=== PATIENT | male | born 1995 | race Caucasian/White ===

== ENCOUNTER → 2016-05-08 | Outpatient (REF) | payer OTHER | LOC: M SFHCLERA 16:26 | PROVIDERS: ATTEND Physician Assistant | DX: L02.91 Cutaneous abscess, unspecified (principal) ==

== ENCOUNTER 2017-09-11 01:27 | Observation (INO) | payer BC, OTHER ==
[2017-09-11 02:05] LABS: VENOUS BASE EXCESS -10.2 (-2.0-2.0); VENOUS HCO3 17.2 MEQ/L (23.0-27.0); VENOUS O2 SATURATION 64.6 % (60.0-80.0); VENOUS PARTIAL PRESSURE CO2 42.8 mmHg (38.0-50.0); VENOUS PARTIAL PRESSURE O2 36.1 mmHg (30.0-50.0); VENOUS PH 7.221 UNITS (7.330-7.430); VENOUS STANDARD HCO3 15.9 MEQ/L; VENOUS TOTAL CO2 18.5 MEQ/L (24.0-28.0)
[2017-09-11] MEDS ORDERED: HumuLIN R (REGULAR) INSULIN (NovoLIN R) **100U/ML** PER UNIT As Ordered (02:06)
[2017-09-11] MEDS ORDERED: KCL 20MEQ IN D5/.45NACL 1000ML As Ordered (02:09)
[2017-09-11 02:48] LABS: OSMOLALITY SERUM 311 MOSM/KG (275-295)
[2017-09-11 02:53] LABS: ANION GAP 15 MEQ/L (8-16); BLOOD UREA NITROGEN 23 MG/DL (7-18); CALCIUM LEVEL 8.6 MG/DL (8.5-10.1); CARBON DIOXIDE LEVEL 16 MEQ/L (21-32); CHLORIDE LEVEL 109 MEQ/L (98-107); CREATININE FOR GFR 1.23 MG/DL (0.70-1.30); GLOMERULAR FILTRATION RATE > 60.0 (>60); GLUCOSE, FASTING 249 MG/DL (70-100); POTASSIUM SERUM 4.6 MEQ/L (3.5-5.1); SODIUM LEVEL 140 MEQ/L (136-145)
[2017-09-11 03:31] LABS: ABG O2 SATURATION 98.2 % (95.0-99.0); ABG PARTIAL PRESSURE CO2 27.7 mmHg (35.0-45.0); ABG STANDARD HCO3 15.2 MEQ/L (22.0-26.0); ABG TOTAL CO2 13.8 MEQ/L (22.0-29.0); ABG pH (ARTERIAL) 7.289 UNITS (7.350-7.450)
[2017-09-11] MEDS ORDERED: DEXTROSE 50% 50 ML SYRINGE IV (04:30)
[2017-09-11] MEDS ORDERED: GLUCAGON FOR INJ 1 MG VIAL (J1610) SC (04:30)
[2017-09-11] MEDS ORDERED: ACETAMINOPHEN TAB 650MG DOSE (2X325MG) PO (04:30)
[2017-09-11] MEDS ORDERED: GLUCOSE 4 GM CHEW TABLET PO (04:30)
[2017-09-11] MEDS: LR 1,000 ML IV ×3 (04:30→22:52)
[2017-09-11 05:20] LABS: ACETONE/KETONE > 46.00 MG/DL (<2.81)
[2017-09-11] MEDS: LEVEMIR (INSULIN DETEMIR) 1 UNITS/0.01ML SC ×2 (05:30→09:17)
[2017-09-11 06:44] LABS: PHOSPHORUS LEVEL 2.4 MG/DL (2.5-4.9)
[2017-09-11 06:44] LABS: MAGNESIUM LEVEL 2.1 MG/DL (1.8-2.4)
[2017-09-11 06:45] LABS: AMPHETAMINES LEVEL URINE NEGATIVE (NEGATIVE); BARBITURATES URINE NEGATIVE (NEGATIVE); BENZODIAZEPINES URINE NEGATIVE (NEGATIVE); CANNABINOIDS URINE NEGATIVE (NEGATIVE); COCAINE METABOLITE URINE NEGATIVE (NEGATIVE); METHADONE URINE NEGATIVE (NEGATIVE); OPIATES URINE POSITIVE (NEGATIVE); PHENCYCLIDINE URINE NEGATIVE (NEGATIVE)
[2017-09-11 06:47] LABS: LACTIC ACID SEPSIS PROTOCOL 0.6 MMOL/L (0.4-2.0)
[2017-09-11] MEDS: HumaLOG INSULIN (NovoLOG) PER UNIT SC ×4 (07:38→21:46)
[2017-09-11 07:40] LABS: BEDSIDE GLUCOSE 277 MG/DL (70-105)
[2017-09-11 12:13] LABS: HEMATOCRIT 39.7 % (42.0-52.0); HEMOGLOBIN 13.5 g/dl (13.5-17.5); MEAN CORPUSCULAR HEMOGLOBIN 30.3 pg (27.0-33.0); PLATELET COUNT, AUTOMATED 342 10^3/uL (150-450); RED BLOOD COUNT 4.46 10^6/uL (4.30-6.10); RED CELL DISTRIBUTION WIDTH 13.2 % (11.5-14.5); WHITE BLOOD COUNT 13.7 10^3/uL (4.0-10.0)
[2017-09-11 12:19] LABS: ABG BASE EXCESS -6.4 (-2.0-2.0); ABG HCO3 17.5 MEQ/L (22.0-26.0); ABG O2 SATURATION 96.7 % (95.0-99.0); ABG PARTIAL PRESSURE CO2 30.6 mmHg (35.0-45.0); ABG PARTIAL PRESSURE O2 83.9 mmHg (75.0-100.0); ABG STANDARD HCO3 19.2 MEQ/L (22.0-26.0); ABG TOTAL CO2 18.5 MEQ/L (22.0-29.0); ABG pH (ARTERIAL) 7.376 UNITS (7.350-7.450)
[2017-09-11 12:59] LABS: HEMATOCRIT 39.2 % (42.0-52.0); HEMOGLOBIN 13.7 g/dl (13.5-17.5); MEAN CORPUSCULAR HEMOGLOBIN 30.1 pg (27.0-33.0); MEAN CORPUSCULAR HGB CONC 34.9 g/dl (32.0-36.5); MEAN CORPUSCULAR VOLUME 86.2 fl (80.0-96.0); PLATELET COUNT, AUTOMATED 301 10^3/uL (150-450); RED BLOOD COUNT 4.55 10^6/uL (4.30-6.10); RED CELL DISTRIBUTION WIDTH 12.8 % (11.5-14.5); WHITE BLOOD COUNT 12.1 10^3/uL (4.0-10.0)
[2017-09-11 13:17] LABS: ANION GAP 11 MEQ/L (8-16); BLOOD UREA NITROGEN 18 MG/DL (7-18); CALCIUM LEVEL 8.8 MG/DL (8.5-10.1); CARBON DIOXIDE LEVEL 20 MEQ/L (21-32); CHLORIDE LEVEL 109 MEQ/L (98-107); CREATININE FOR GFR 1.09 MG/DL (0.70-1.30); GLOMERULAR FILTRATION RATE > 60.0 (>60); GLUCOSE, FASTING 184 MG/DL (70-100); LIPASE 301 U/L (73-393); POTASSIUM SERUM 4.3 MEQ/L (3.5-5.1); SODIUM LEVEL 140 MEQ/L (136-145); TROPONIN I < 0.02 NG/ML (< 0.10)
[2017-09-11 13:18] LABS: ACETONE/KETONE 33.31 MG/DL (<2.81)
[2017-09-11 15:17] LABS: BEDSIDE GLUCOSE 269 MG/DL (70-105)
[2017-09-11 15:17] LABS: BEDSIDE GLUCOSE 223 MG/DL (70-105)
[2017-09-11 15:17] LABS: BEDSIDE GLUCOSE 250 MG/DL (70-105)
[2017-09-11 17:54] LABS: BEDSIDE GLUCOSE 210 MG/DL (70-105)
[2017-09-11] MEDS ORDERED: CALCIUM CARBONATE 500 MG CHEW U/D PO (18:45)
[2017-09-11 21:02] LABS: BEDSIDE GLUCOSE 213 MG/DL (70-105)
[2017-09-12] MEDS: LR 1,000 ML IV (05:49)
[2017-09-12 06:04] LABS: HEMATOCRIT 33.4 % (42.0-52.0); HEMOGLOBIN 11.8 g/dl (13.5-17.5); MEAN CORPUSCULAR HEMOGLOBIN 30.4 pg (27.0-33.0); MEAN CORPUSCULAR HGB CONC 35.3 g/dl (32.0-36.5); MEAN CORPUSCULAR VOLUME 86.1 fl (80.0-96.0); PLATELET COUNT, AUTOMATED 241 10^3/uL (150-450); RED BLOOD COUNT 3.88 10^6/uL (4.30-6.10); RED CELL DISTRIBUTION WIDTH 12.6 % (11.5-14.5); WHITE BLOOD COUNT 7.5 10^3/uL (4.0-10.0)
[2017-09-12 06:23] LABS: ANION GAP 9 MEQ/L (8-16); BLOOD UREA NITROGEN 11 MG/DL (7-18); CARBON DIOXIDE LEVEL 23 MEQ/L (21-32); CHLORIDE LEVEL 107 MEQ/L (98-107); CREATININE FOR GFR 0.88 MG/DL (0.70-1.30); GLOMERULAR FILTRATION RATE > 60.0 (>60); GLUCOSE, FASTING 279 MG/DL (70-100); POTASSIUM SERUM 3.8 MEQ/L (3.5-5.1); SODIUM LEVEL 139 MEQ/L (136-145)
[2017-09-12 07:02] LABS: ACETONE/KETONE 40.71 MG/DL (<2.81)
[2017-09-12] MEDS: PANTOPRAZOLE 40MG TAB (PROTONIX) PO (09:20)
[2017-09-12] MEDS: LEVEMIR (INSULIN DETEMIR) 1 UNITS/0.01ML SC (09:21)
[2017-09-12] MEDS: HumaLOG INSULIN (NovoLOG) PER UNIT SC ×2 (09:23→12:31)
[2017-09-12 11:53] LABS: BEDSIDE GLUCOSE 303 MG/DL (70-105)
== END 2017-09-12 14:41 | disposition home or self-care (01) ==
LOC: M ED 01:27 → M ED INP 04:27 → M PCU 08:37 → M MSPAV 17:55
PROVIDERS: Internal Medicine
DX: E10.10 Type 1 diabetes mellitus with ketoacidosis without coma (principal); T85.614A Breakdown (mechanical) of insulin pump, initial encounter; T38.3X6A Underdosing of insulin and oral hypoglycemic [antidiabetic] drugs, initial encounter; Y74.2 Prosthetic and other implants, materials and accessory general hospital and personal-use devices associated with adverse incidents; E10.65 Type 1 diabetes mellitus with hyperglycemia; R00.0 Tachycardia, unspecified; R11.2 Nausea with vomiting, unspecified; R10.9 Unspecified abdominal pain; Z79.899 Other long term (current) drug therapy
CPT/HCPCS: 36600

== ENCOUNTER 2017-12-05 08:25 | Inpatient (IN) | payer BC, OTHER ==
[2017-12-05 08:49] LABS: BEDSIDE GLUCOSE 221 MG/DL (70-105)
[2017-12-05 09:16] LABS: VENOUS BASE EXCESS -7.3 (-2.0-2.0); VENOUS HCO3 19.3 MEQ/L (23.0-27.0); VENOUS O2 SATURATION 70.9 % (60.0-80.0); VENOUS PARTIAL PRESSURE CO2 42.6 mmHg (38.0-50.0); VENOUS PARTIAL PRESSURE O2 39.9 mmHg (30.0-50.0); VENOUS PH 7.273 UNITS (7.330-7.430); VENOUS STANDARD HCO3 18.1 MEQ/L; VENOUS TOTAL CO2 20.6 MEQ/L (24.0-28.0)
[2017-12-05 09:49] LABS: ANION GAP 11 MEQ/L (8-16); BLOOD UREA NITROGEN 29 MG/DL (7-18); CALCIUM LEVEL 8.4 MG/DL (8.5-10.1); CARBON DIOXIDE LEVEL 23 MEQ/L (21-32); CHLORIDE LEVEL 109 MEQ/L (98-107); CREATININE FOR GFR 1.28 MG/DL (0.70-1.30); GLOMERULAR FILTRATION RATE > 60.0 (>60); GLUCOSE, FASTING 181 MG/DL (70-100); POTASSIUM SERUM 4.3 MEQ/L (3.5-5.1); SODIUM LEVEL 143 MEQ/L (136-145)
[2017-12-05 10:15] LABS: BEDSIDE GLUCOSE 168 MG/DL (70-105)
[2017-12-05 10:23] LABS: ABG HCO3 15.5 MEQ/L (22.0-26.0); ABG PARTIAL PRESSURE CO2 29.6 mmHg (35.0-45.0); ABG PARTIAL PRESSURE O2 103.8 mmHg (75.0-100.0); ABG STANDARD HCO3 17.3 MEQ/L (22.0-26.0); ABG TOTAL CO2 16.4 MEQ/L (22.0-29.0); ABG pH (ARTERIAL) 7.336 UNITS (7.350-7.450)
[2017-12-05 11:53] LABS: BEDSIDE GLUCOSE 208 MG/DL (70-105)
[2017-12-05 12:56] LABS: ANION GAP 17 MEQ/L (8-16); BLOOD UREA NITROGEN 26 MG/DL (7-18); CALCIUM LEVEL 8.5 MG/DL (8.5-10.1); CARBON DIOXIDE LEVEL 18 MEQ/L (21-32); CHLORIDE LEVEL 107 MEQ/L (98-107); CREATININE FOR GFR 1.19 MG/DL (0.70-1.30); GLOMERULAR FILTRATION RATE > 60.0 (>60); GLUCOSE, FASTING 291 MG/DL (70-100); POTASSIUM SERUM 4.6 MEQ/L (3.5-5.1); SODIUM LEVEL 142 MEQ/L (136-145)
[2017-12-05] MEDS ORDERED: INSULIN HUMAN REGULAR 100 UNITS in NS 99 ML IV ×2 (13:30→14:00)
[2017-12-05] MEDS: NS 1,000 ML IV ×3 (13:30→23:40)
[2017-12-05 13:50] LABS: BEDSIDE GLUCOSE 408 MG/DL (70-105)
[2017-12-05] MEDS ORDERED: MAALOX 30 ML SUSP *UDC PO (14:30)
[2017-12-05] MEDS: INSULIN HUMAN REGULAR 100 UNITS in NS 99 ML IV (15:00)
[2017-12-05 15:09] LABS: BEDSIDE GLUCOSE 505 MG/DL (70-105)
[2017-12-05 15:17] LABS: ESTIMATED AVERAGE GLUCOSE 275 MG/DL (60-110); HEMOGLOBIN A1c 11.2 %
[2017-12-05 15:21] LABS: ANION GAP 18 MEQ/L (8-16); BLOOD UREA NITROGEN 27 MG/DL (7-18); CALCIUM LEVEL 8.8 MG/DL (8.5-10.1); CARBON DIOXIDE LEVEL 16 MEQ/L (21-32); CHLORIDE LEVEL 103 MEQ/L (98-107); GLOMERULAR FILTRATION RATE > 60.0 (>60); POTASSIUM SERUM 4.5 MEQ/L (3.5-5.1); SODIUM LEVEL 137 MEQ/L (136-145)
[2017-12-05 15:23] LABS: PHOSPHORUS LEVEL 3.2 MG/DL (2.5-4.9)
[2017-12-05 15:24] LABS: GLUCOSE, FASTING 490 MG/DL (70-100)
[2017-12-05 15:26] LABS: ACETONE/KETONE > 46.00 MG/DL (<2.81)
[2017-12-05] MEDS: ONDANSETRON 4MG/2ML VIAL (J2405) IV (16:00)
[2017-12-05] MEDS: PANTOPRAZOLE 40MG INJ (PROTONIX) (C9113) IV (16:00)
[2017-12-05] MEDS: KCL 20MEQ in NS 1000ML 1,000 ML IV (16:01)
[2017-12-05 16:11] LABS: BEDSIDE GLUCOSE 447 MG/DL (70-105)
[2017-12-05] MEDS: INSULIN IV RATE CHANGE DOCUMENTATION ML/HR XX ×3 (17:00→19:12)
[2017-12-05 17:24] LABS: BEDSIDE GLUCOSE 309 MG/DL (70-105)
[2017-12-05 18:01] LABS: BEDSIDE GLUCOSE 283 MG/DL (70-105)
[2017-12-05 19:07] LABS: BEDSIDE GLUCOSE 160 MG/DL (70-105)
[2017-12-05] MEDS: KCL 20MEQ IN D5/0.45NS 1000ML 1,000 ML IV (19:23)
[2017-12-05 19:30] LABS: ANION GAP 12 MEQ/L (8-16); BLOOD UREA NITROGEN 24 MG/DL (7-18); CALCIUM LEVEL 8.4 MG/DL (8.5-10.1); CARBON DIOXIDE LEVEL 20 MEQ/L (21-32); CHLORIDE LEVEL 108 MEQ/L (98-107); GLOMERULAR FILTRATION RATE > 60.0 (>60); GLUCOSE, FASTING 246 MG/DL (70-100); POTASSIUM SERUM 4.1 MEQ/L (3.5-5.1); SODIUM LEVEL 140 MEQ/L (136-145)
[2017-12-05 19:31] LABS: ACETONE/KETONE 32.48 MG/DL (<2.81)
[2017-12-05 19:31] LABS: MAGNESIUM LEVEL 1.9 MG/DL (1.8-2.4)
[2017-12-05] MEDS ORDERED: GLUCAGON FOR INJ 1 MG VIAL (J1610) SC (19:45)
[2017-12-05] MEDS ORDERED: DEXTROSE 50% 50 ML SYRINGE IV (19:45)
[2017-12-05] MEDS ORDERED: GLUCOSE 4 GM CHEW TABLET PO (19:45)
[2017-12-05 20:01] LABS: BEDSIDE GLUCOSE 190 MG/DL (70-105)
[2017-12-05] MEDS: LEVEMIR (INSULIN DETEMIR) 1 UNITS/0.01ML SC (20:01)
[2017-12-05] MEDS: HumaLOG INSULIN (NovoLOG) PER UNIT SC (20:01)
[2017-12-05 21:00] LABS: BEDSIDE GLUCOSE 187 MG/DL (70-105)
[2017-12-05 23:16] LABS: ACETONE/KETONE 39.19 MG/DL (<2.81); ANION GAP 11 MEQ/L (8-16); BLOOD UREA NITROGEN 20 MG/DL (7-18); CARBON DIOXIDE LEVEL 20 MEQ/L (21-32); CHLORIDE LEVEL 108 MEQ/L (98-107); CREATININE FOR GFR 1.15 MG/DL (0.70-1.30); GLOMERULAR FILTRATION RATE > 60.0 (>60); GLUCOSE, FASTING 221 MG/DL (70-100); MAGNESIUM LEVEL 1.9 MG/DL (1.8-2.4); POTASSIUM SERUM 4.2 MEQ/L (3.5-5.1); SODIUM LEVEL 139 MEQ/L (136-145)
[2017-12-06 02:40] LABS: ACETONE/KETONE 23.02 MG/DL (<2.81); ANION GAP 11 MEQ/L (8-16); BLOOD UREA NITROGEN 17 MG/DL (7-18); CARBON DIOXIDE LEVEL 21 MEQ/L (21-32); CHLORIDE LEVEL 108 MEQ/L (98-107); CREATININE FOR GFR 1.19 MG/DL (0.70-1.30); GLOMERULAR FILTRATION RATE > 60.0 (>60); GLUCOSE, FASTING 182 MG/DL (70-100); POTASSIUM SERUM 3.9 MEQ/L (3.5-5.1); SODIUM LEVEL 140 MEQ/L (136-145)
[2017-12-06 02:40] LABS: MAGNESIUM LEVEL 1.9 MG/DL (1.8-2.4)
[2017-12-06 06:48] LABS: HEMOGLOBIN 11.5 g/dl (13.5-17.5); MEAN CORPUSCULAR HEMOGLOBIN 31.3 pg (27.0-33.0); MEAN CORPUSCULAR HGB CONC 34.8 g/dl (32.0-36.5); MEAN CORPUSCULAR VOLUME 89.7 fl (80.0-96.0); PLATELET COUNT, AUTOMATED 277 10^3/uL (150-450); RED BLOOD COUNT 3.68 10^6/uL (4.30-6.10); RED CELL DISTRIBUTION WIDTH 11.9 % (11.5-14.5); WHITE BLOOD COUNT 8.8 10^3/uL (4.0-10.0)
[2017-12-06 07:08] LABS: ALBUMIN/GLOBULIN RATIO 0.94 (1.00-1.93); ALKALINE PHOSPHATASE 77 U/L (45-117); ALT/SGPT 18 U/L (12-78); ANION GAP 9 MEQ/L (8-16); AST/SGOT 14 U/L (7-37); BILIRUBIN,TOTAL 0.6 MG/DL (0.2-1.0); BLOOD UREA NITROGEN 15 MG/DL (7-18); CARBON DIOXIDE LEVEL 24 MEQ/L (21-32); CHLORIDE LEVEL 108 MEQ/L (98-107); CREATININE FOR GFR 1.02 MG/DL (0.70-1.30); GLOMERULAR FILTRATION RATE > 60.0 (>60); GLUCOSE, FASTING 120 MG/DL (70-100); MAGNESIUM LEVEL 1.8 MG/DL (1.8-2.4); PHOSPHORUS LEVEL 1.6 MG/DL (2.5-4.9); POTASSIUM SERUM 3.8 MEQ/L (3.5-5.1); SODIUM LEVEL 141 MEQ/L (136-145); TOTAL PROTEIN 6.2 GM/DL (6.4-8.2)
[2017-12-06] MEDS: PANTOPRAZOLE 40MG INJ (PROTONIX) (C9113) IV (08:30)
[2017-12-06] MEDS: NEUTRA-PHOS 1.25 GM PACKET PO (08:31)
[2017-12-06] MEDS: NS 1,000 ML IV (08:31)
[2017-12-06] MEDS: HumaLOG INSULIN (NovoLOG) PER UNIT SC ×2 (08:31→12:50)
[2017-12-06] MEDS: ENOXAPARIN 40 MG/0.4 ML SYRINGE (J1650) SC (08:32)
[2017-12-06] MEDS ORDERED: LEVEMIR (INSULIN DETEMIR) 1 UNITS/0.01ML SC (09:00)
[2017-12-06] MEDS: SODIUM PHOSPHATE INJ 30 MMOL in D5W 500 ML IV (09:26)
[2017-12-06 10:40] LABS: BEDSIDE GLUCOSE 258 MG/DL (70-105)
[2017-12-06] MEDS: LEVEMIR (INSULIN DETEMIR) 1 UNITS/0.01ML SC (11:03)
[2017-12-06 12:46] LABS: BEDSIDE GLUCOSE 252 MG/DL (70-105)
== END 2017-12-06 13:30 | disposition home or self-care (01) | DRG 813 ==
LOC: M ED 08:25 → M ED INP 14:20 → M ICU 15:47
PROVIDERS: Hospitalist
DX: T85.624A Displacement of insulin pump, initial encounter (principal); E10.10 Type 1 diabetes mellitus with ketoacidosis without coma; Z79.4 Long term (current) use of insulin; E86.0 Dehydration

== ENCOUNTER → 2020-02-27 | Outpatient (REF) | payer OTHER ==
[~2020-02-27] MED LIST: INSUDET SC; INSUH10VL; INSUH10VL SC; PANT40TA29 PO
[2020-03-01 18:25] LABS: FERRITIN 16 NG/ML (26-388); IRON (FE) 66 UG/DL (65-175); PERCENT SATURATION 18.1 % (19.7-50.0); TOTAL IRON BINDING CAPACITY 365 UG/DL (250-450)
[2020-03-01 18:27] LABS: VITAMIN B12 LEVEL 974 PG/ML
[2020-03-01 18:28] LABS: FOLATE > 24.0 NG/ML
== END ==
LOC: M LAB REF 16:56
PROVIDERS: ATTEND Internal Medicine Nephrology
DX: D64.9 Anemia, unspecified (principal)

== ENCOUNTER → 2021-01-14 | Outpatient (REF) | payer OTHER | LOC: M LAB REF 17:06 | PROVIDERS: ATTEND Internal Medicine Nephrology | DX: N18.31 Chronic kidney disease, stage 3a (principal) ==

== ENCOUNTER → 2022-09-13 | Outpatient (REF) | payer OTHER ==
[2022-09-14 17:40] LABS: PERCENT SATURATION 20.5 % (19.7-50.0)
[2022-09-14 17:59] LABS: TOTAL PROTEIN,RANDOM URINE 113.7 MG/DL (0.0-14.0)
[2022-09-14 18:03] LABS: CREATININE,RANDOM URINE 58.8 MG/DL
== END ==
LOC: M LAB REF 17:03
PROVIDERS: ATTEND Nurse Practitioner Family
DX: R80.9 Proteinuria, unspecified (principal); D50.9 Iron deficiency anemia, unspecified

== ENCOUNTER 2023-06-27 18:07 | Inpatient (IN) | payer BC, OTHER ==
[~2023-06-27] VITALS: Ht 175.3 cm; Wt 58.0 kg
[2023-06-27] MEDS ORDERED: LISI20TA33 PO (18:13)
[2023-06-27] MEDS ORDERED: HYDR12.55 PO (18:14)
[2023-06-27] MEDS ORDERED: FAMO10TA50 PO (18:14)
[2023-06-27] MEDS ORDERED: AMLO1TAB24 PO (18:14)
[2023-06-27 22:02] LABS: BASO % 0.7 % (0.0-1.0); EOS # 0.1 10^3/uL (0.0-0.5); EOS % 2.2 % (0.0-3.0); HEMATOCRIT 32.3 % (42.0-52.0); HEMOGLOBIN 11.1 g/dl (13.5-17.5); LYMPH # 2.5 10^3/uL (1.5-5.0); LYMPH % 45.9 % (24.0-44.0); MEAN CORPUSCULAR HEMOGLOBIN 30.7 pg (27.0-33.0); MEAN CORPUSCULAR HGB CONC 34.4 g/dl (32.0-36.5); MEAN CORPUSCULAR VOLUME 89.5 fl (80.0-96.0); MONO # 0.5 10^3/uL (0.0-0.8); MONO % 9.3 % (2.0-8.0); NEUTROPHILS # 2.2 10^3/uL (1.5-8.5); NEUTROPHILS % 41.5 % (36.0-66.0); PLATELET COUNT, AUTOMATED 369 10^3/uL (150-450); RED BLOOD COUNT 3.61 10^6/uL (4.30-6.10); WHITE BLOOD COUNT 5.4 10^3/uL (4.0-10.0)
[2023-06-27 22:17] LABS: ERYTHROCYTE SEDIMENTATION RATE 82 mm/hr (0-15)
[2023-06-27 22:31] LABS: C REACTIVE PROTEIN QUANTITATIV < 0.40 MG/DL (<1.0)
[2023-06-27 22:36] LABS: ALBUMIN 3.5 G/DL (3.2-5.2); ALKALINE PHOSPHATASE 170 U/L (46-116); ALT/SGPT 20 U/L (7.0-40); AST/SGOT 15 U/L (<34); BILIRUBIN,DIRECT 0.1 MG/DL (<0.4); BILIRUBIN,TOTAL 0.3 MG/DL (0.3-1.2); BLOOD UREA NITROGEN 39 MG/DL (9-23); CALCIUM LEVEL 9.8 MG/DL (8.5-10.1); CARBON DIOXIDE LEVEL 24 MMOL/L (20-31); CHLORIDE LEVEL 98 MMOL/L (98-107); CREATININE FOR GFR 2.49 MG/DL (0.70-1.30); GLOMERULAR FILTRATION RATE 32.6 (>60); GLUCOSE, FASTING 463 MG/DL (60-100); POTASSIUM SERUM 5.1 MMOL/L (3.5-5.1); SODIUM LEVEL 129 MMOL/L (136-145); TOTAL PROTEIN 7.1 G/DL (5.7-8.2)
[2023-06-27] MEDS: NS 1,000 ML IV ONE (23:06)
[2023-06-27] MEDS: CEFEPIME HCL 1 GM in D5W MINI-BAG PLUS 50 ML IV ONE (23:06)
[2023-06-27] MEDS: LEVEMIR (INSULIN DETEMIR) 1 UNITS/0.01ML SC ONE (23:07)
[2023-06-27 23:09] LABS: HEMOGLOBIN A1c > 14.0 % (4.0-6.0)
[2023-06-28] MEDS ORDERED: HumuLIN R (REGULAR) INSULIN (NovoLIN R) **100U/ML** PER UNIT As Ordered ONE (01:44)
[2023-06-28] MEDS: HumuLIN R (REGULAR) INSULIN (NovoLIN R) **100U/ML** PER UNIT IV ONE (03:25)
[2023-06-28] MEDS: NS 1,000 ML IV SCH (03:40)
[2023-06-28] MEDS: VANCOMYCIN HCL 1,000 MG, VIAL MATE ADAPTER 1 EACH in D5W 250 ML IV SCH (04:03)
[2023-06-28] MEDS ORDERED: ONDANSETRON 4MG 2ML VIAL IV PRN (04:20)
[2023-06-28] MEDS ORDERED: GLUCAGON INJ 1MG VIAL SC PRN (04:30)
[2023-06-28] MEDS ORDERED: GLUCOSE 4GM CHEW TABLET PO PRN (04:30)
[2023-06-28] MEDS: INSULIN LISPRO (NovoLOG) PER UNIT SC SCH ×2 (06:18→12:00)
[2023-06-28 06:35] VITALS: BP 139/91; TEMP 98.2; O2SAT 98
[2023-06-28 07:27] LABS: CALCIUM LEVEL 9.1 MG/DL (8.5-10.1); CREATININE FOR GFR 2.51 MG/DL (0.70-1.30); GLOMERULAR FILTRATION RATE 32.3 (>60); PHOSPHORUS LEVEL 2.4 MG/DL (2.5-4.9); POTASSIUM SERUM 4.6 MMOL/L (3.5-5.1)
[2023-06-28] MEDS: DEXTROSE 50% 50ML SYRINGE IV PRN (08:54)
[2023-06-28] MEDS ORDERED: FAMO40TA3 PO (09:27)
[2023-06-28] MEDS ORDERED: INSU100I48 SQ (09:27)
[2023-06-28] MEDS: cefTRIAXone SOD 2 GM in D5W MINI-BAG PLUS 50 ML IV SCH (09:30)
[2023-06-28] MEDS ORDERED: HOME MED LIST COMPLETE! XX SCH (10:20)
[2023-06-28] MEDS ORDERED: VANCOMYCIN INTERMITTENT/PULSE DOSING BY CLINICAL PHARMACIST PER DOSING PROTOCOL XX SCH (11:20)
[2023-06-28] MEDS ORDERED: INSULIN LISPRO (NovoLOG) PER UNIT SC SCH (12:00)
[2023-06-28] MEDS ORDERED: CALCIUM CARBONATE 500 MG CHEW U/D PO PRN (13:55)
[2023-06-28] MEDS ORDERED: SILVER SULFADIAZINE 1% CR 50 GM JAR TOP ONE (18:00)
[2023-06-28] MEDS ORDERED: AUGM500T34 PO (18:17)
[2023-06-28] MEDS ORDERED: VANCOMYCIN HCL 1,000 MG, VIAL MATE ADAPTER 1 EACH in D5W 250 ML IV SCH (21:00)
[2023-06-28] MEDS ORDERED: LEVEMIR (INSULIN DETEMIR) 1 UNITS/0.01ML SC SCH (21:00)
== END 2023-06-28 19:00 | disposition home or self-care (01) | DRG 344 ==
LOC: M ED 18:07 → M ED INP 23:41 → M MS5PR 06-28 02:55
PROVIDERS: ADMIT Internal Medicine; ATTEND Internal Medicine
PROC: 0JBQ0ZZ Excision of Right Foot Subcutaneous Tissue and Fascia, Open Approach (ICD-10-PCS; principal; 2023-06-28)
DX: E10.69 Type 1 diabetes mellitus with other specified complication (principal); E10.22 Type 1 diabetes mellitus with diabetic chronic kidney disease; N18.4 Chronic kidney disease, stage 4 (severe); M86.8X7 Other osteomyelitis, ankle and foot; E10.65 Type 1 diabetes mellitus with hyperglycemia; E10.621 Type 1 diabetes mellitus with foot ulcer; L97.519 Non-pressure chronic ulcer of other part of right foot with unspecified severity; K21.9 Gastro-esophageal reflux disease without esophagitis; Z79.4 Long term (current) use of insulin; Z79.899 Other long term (current) drug therapy; S92.421D Displaced fracture of distal phalanx of right great toe, subsequent encounter for fracture with routine healing

== ENCOUNTER → 2024-01-24 | Outpatient (REF) | payer BC, OTHER ==
[~2024-01-24] MED LIST changes: +AMLO1TAB24 PO; +AUGM500T34 PO; +FAMO10TA50 PO; +FAMO40TA3 PO; +HYDR12.55 PO; +INSU100I48 SQ; +LISI20TA33 PO
[2024-01-24 18:56] LABS: PERCENT SATURATION 24.4 % (19.7-50.0)
[2024-01-24 18:59] LABS: FERRITIN 16.3 NG/ML (10.5-307.3)
== END ==
LOC: M LAB REF 17:32
PROVIDERS: ATTEND Nurse Practitioner Family
DX: D50.9 Iron deficiency anemia, unspecified (principal)

== ENCOUNTER → 2024-05-28 | Outpatient (REF) | payer OTHER ==
[2024-05-29 19:01] LABS: PERCENT SATURATION 22.7 % (19.7-50.0)
[2024-05-29 19:04] LABS: FERRITIN 18.1 NG/ML (10.5-307.3)
== END ==
LOC: M LAB REF 17:18
PROVIDERS: ATTEND Nurse Practitioner Family
DX: D50.9 Iron deficiency anemia, unspecified (principal)

== ENCOUNTER → 2024-08-15 | Outpatient (REF) | payer OTHER, BC ==
[2024-08-18 19:53] LABS: HEPATITIS B CORE ANTIBODY IGM NEGATIVE (NEGATIVE); HEPATITIS B SURFACE ANTIBODY NEGATIVE (POSITIVE); HEPATITIS B SURFACE ANTIGEN NEGATIVE (NEGATIVE); HEPATITIS C VIRUS ABY INDEX 0.04 INDEX (<0.8)
== END ==
LOC: M LAB REF 17:31
PROVIDERS: ATTEND Nurse Practitioner Family
DX: N18.5 Chronic kidney disease, stage 5 (principal); D64.9 Anemia, unspecified

== ENCOUNTER → 2024-09-08 | Outpatient (CLI) | payer BC ==
[~2024-09-08] VITALS: Ht 175.3 cm; Wt 62.4 kg
[~2024-09-08] MED LIST changes: +AMLO1TAB25 PO; +ATOR1TAB19 PO; +ELIQ5TAB PO; +FURO40TA2 PO; +HEPARIN SOD 5000UNITS/ML 1ML VIAL/SYRINGE As Ordered ONE; +HYDR25TA87 PO; +LIDOCAINE 2% 100MG/5ML SDV (FOR ANES.) As Ordered ONE; +LR 1,000 ML IV SCH; +MIDAZOLAM INJ 2MG/2ML VIAL As Ordered ONE; +NOVOINJ3 SQ; +RETA1000 SC; +ROCURONIUM BROMIDE 50MG/5ML VIAL As Ordered ONE; +SEVE800T3 PO; +TRES1INJ2 SC; +ceFAZolin SOD 2 GM IV ONCE IV ONE; +fentaNYL 100 MCG/2 ML INJECTION As Ordered ONE; +propofoL 200 MG/20 ML VIAL As Ordered ONE
[2024-09-08 08:07] VITALS: BP 163/95; TEMP 97.7; O2SAT 99
[2024-09-08] MEDS: CelecoXIB 400 MG CAP PO ONE (08:15)
== END | disposition home or self-care (01) ==
LOC: M SDC 07:41 → M LAB 07:41 → EDSTATUS 09:00
PROVIDERS: ATTEND Surgery
DX: N18.6 End stage renal disease (principal); Z53.09 Procedure and treatment not carried out because of other contraindication

== ENCOUNTER → 2024-09-10 | Outpatient (REF) | payer BC, OTHER ==
[~2024-09-10] MED LIST changes: -HEPARIN SOD 5000UNITS/ML 1ML VIAL/SYRINGE As Ordered ONE; -LIDOCAINE 2% 100MG/5ML SDV (FOR ANES.) As Ordered ONE; -LR 1,000 ML IV SCH; -MIDAZOLAM INJ 2MG/2ML VIAL As Ordered ONE; -ROCURONIUM BROMIDE 50MG/5ML VIAL As Ordered ONE; -ceFAZolin SOD 2 GM IV ONCE IV ONE; -fentaNYL 100 MCG/2 ML INJECTION As Ordered ONE; -propofoL 200 MG/20 ML VIAL As Ordered ONE
[2024-09-10 18:13] LABS: HEPATITIS B SURFACE ANTIBODY NEGATIVE (POSITIVE)
[2024-09-10 18:25] LABS: HEPATITIS B SURFACE ANTIGEN NEGATIVE (NEGATIVE)
[2024-09-10 18:45] LABS: HEPATITIS B CORE ANTIBODY IGM NEGATIVE (NEGATIVE); HEPATITIS C VIRUS ABY INDEX 0.07 INDEX (<0.8)
== END ==
LOC: M LAB REF 16:54
PROVIDERS: ATTEND Nurse Practitioner Family
DX: N18.5 Chronic kidney disease, stage 5 (principal)